=== PATIENT | male | born 1995 | race Caucasian/White ===

== ENCOUNTER 2025-03-10 12:00 | Outpatient (REF) | payer OTHER, SELFPAY ==
--- OUTSIDE RECORDS SUMMARY | 2025-03-10 12:41 | XMS_ITS | Clinical Summary ---
Author Organization [facility] Address [address] [place] [address] Phone Care Team Providers Care Vice President Safety Name Role Phone Unavailable Primary Care Provider Unavailabl e Immunizations Immunization Administration Dates Next Due DTaP 07/17/1999, 7,1995,10/08,1995 H1N1 03/08/2009 HPV, Quadrivalent 12/26/2011,08/19/2011,06/16/19 12 Hep B, ped/adol 03/08/1996,1995,1995 Hib (PRP-T) 09/06/1996, 6,1995,08/05 IPV 07/17/1999 Influenza 12/19/2008, 8,02/05/2007,03/21,03/14/2005 Influenza, injectable, quadr ivalent, preservative free 02/11/2014,02/19/2013 Influenza, injectable, trivalent 06/08/2012,05/22,02/22/2010 MMR 06/10/2000,09/06/1996 Meningococcal Conj (Menactra) MCV4P 06/07/2013,0 06/08/2007 OPV 1995,1995,1995 Tdap 06/08/2007 Varicella 06/08/2007,06/09/1996 Family History Relation Name Status Comments Cousin 1 Alive Cousin 2 Maternal Cousin s: Cousin passed of acute liver failure at the age of 23 years which was a results of herpes simplex infection. Negative for David Father Alive Father's Brother Alive Father's Sister Paternal Aun t: None Maternal Grandfather Alive Maternal Grandmother Alive Mat GMo ther: Lung cancer ? Mother Alive Other 1 None Other 2 Alive Other 3 Alive Other 4 Alive Other 5 Alive Other 6 Alive Other 7 Alive Other 8 Alive Other 9 Alive Other 10 Alive Lung cancer ? Other 11 Cousin passed o f acute liver failure at the age of 23 years which was a results of herpes simplex infection. Negative for David Other 12 Unknown Paternal Grandfather Pat GFa ther: Unknown Paternal Grandmother Alive Social History Tobacco Use Types Packs/Day Years Used Date Smoking Tobacco: Never Assessed Sex and Gender Information Value Date Recorded Sex Assigned at Not on file Legal Sex Male 4:52 PM EST Gender Identity Not on file Sexual Orientation Not on file Last Filed Vital Signs Vital Sign Reading Time Taken Comments Blood Pressure 116/73 05/24/2015 12:00 AM EST Pulse 74 05/24/2015 12:00 AM EST Temperature 37.1 C (98.8 F) 03/27/2015 12:00 AM EST Respiratory Rate - - Oxygen Saturation 97% 02/12/2011 12:00 AM EDT Inhaled Oxygen Concentration - - Weight 102 kg (223 lb 13 oz) 05/24/2015 12:00 AM EST Height 180.3 cm (5' 11 ) 05/24/2015 12:00 AM EST Body Mass Index 31.22 05/24/2015 12:00 AM EST Plan of Treatment Health Maintenance Due Date Last Done Comments DTaP,Tdap,and Td Vaccines (7 - Td or Tdap) 06/08/2017 06/08/2007, 07/17/1999, 12/06/1996, Additional history exists Influenza Vaccines (#1) 2024 02/12/20 14, 02/19/2013, 06/08/2012, Additional history exists COVID-19 Vaccine ( season) 2024 Hepatitis B Vaccines Completed 03/08/1996, 1995, 1995 HIB Vaccines Completed 09/06/1996, 11/18, 1995, Additional history exists IPV Vaccines Completed 07/17/1999, 11/18, 1995, Additional history exists MMR Vaccines Completed 06/10/2000, 09/06/1996 Varicella Vaccines Completed 06/08/2007, 06/09/1996 HPV Vaccines Completed 12/26/2011, 05/0 04/2011, 06/16/2011 Meningococcal Vaccine Completed 06/07/2013, 008 Hepatitis A Vaccines Aged Out No long er eligible based on patient's age to complete this topic Men B Vaccine Aged Out No longer elig ible based on patient's age to complete this topic Pneumococcal Vaccine Aged Out No long er eligible based on patient's age to complete this topic
--- OUTSIDE RECORDS SUMMARY | 2025-03-10 12:41 | XMS_ITS | Clinical Summary ---
Author Organization [facility] [email or web address] [facility] Address [address] [place] [address] Care Team Providers Care Burner Operator Name Role Phone Pcp, Josselin Primary Care Provider [phone] Social History Tobacco Use Types Packs/Day Years Used Date Smoking Tobacco: Never Assessed Sex and Gender Information Value Date Recorded Sex Assigned at Not on file Legal Sex Male 10:12 AM EST Gender Identity Not on file Sexual Orientation Not on file Plan of Treatment Not on file Medical Devices Not on file Insurance [facility] Care Teams Burner Operator Relationship Specialty Start Date End Date Josselin Chavez PCP - General Family Medicine 03/26/20
--- OUTSIDE RECORDS SUMMARY | 2025-03-10 12:41 | XMS_ITS | Clinical Summary ---
Author Organization [facility] Address [address] [address] Phone Care Team Providers Care Market Research Executive Name Role Phone Kirill Gomez Primary Care Provider [phone] Allergies Active Allergy Reactions Criticality Noted Date Comments Amoxicillin Hives 10/19/2019 Medications acetaminophen (TYLENOL) 325 mg tablet Take 2 tablets (650 mg total) by mouth every 6 (six) hours as needed for mild pain. 0 10/20/2019 Active diclofenac sodium (VOLTAREN) 75 MG EC tablet Take 1 tablet (75 mg total) by mouth 2 (two) times a day. 30 tablet 12/05/2024 Active cyclobenzaprine (FLEXERIL) 10 MG tablet Take 1 tablet (10 mg total) by mouth 3 (three) times a day as needed (pain). 30 tablet 12/05/2024 Active gabapentin (NEURONTIN) 100 MG capsule Take 1 capsule (100 mg total) by mouth 3 (three) times a day as needed (pain). 9 capsule 12/16/2024 Active Resolved Problems Problem Noted Date Diagnosed Date Resolved Date Appendicitis, acute 10/19/2019 10/20/19 20 Encounters Date Type Department Care Team Description 12/16/2024 4:32 PM EDT - 12/16/2024 6:08 PM EDT Emergency [facility] [address] [place] [address] Discharge Disposition: Home or Self Care from Last 3 Months Social History Tobacco Use Types Packs/Day Years Used Date Smoking Tobacco: Never Smokeless Tobacco: Never Alcohol Use Standard Drinks/Week Comments Never 0 (1 standard drink = 0.6 oz pur e alcohol) Education Answer Date Recorded Are you interested in more education? Not on edwardo e 08/15/2022 Are you concerned about learning? Not on file 08/15/2022 No 08/15/2022 No 08/15/2022 Digital Access Answer Date Recorded No 09/12/2022 No 09/12/2022 Reliable internet access at home? Not on file 09/12/2022 Device with a working camera? Not on file Intimate Partner Violence Answer Date R ecorded Are you denied basic needs s uch as food, clothing, or medical care? No 12/16/2024 In the past 12 months have y ou been in a relationship with a person who hurts, threatens, or tries to control you? No 12/16/2024 Are you denied basic needs s uch as food, clothing, or medical care? No 12/16/2024 In the past 12 months have y ou been in a relationship with a person who hurts, threatens, or tries to control you? No 12/16/2024 Sex and Gender Information Value Date Recorded Sex Assigned at Male 10/19/2019 4:32 PM EDT Legal Sex Male 8:52 PM EDT Gender Identity Male 10/19/2019 4:32 PM EDT Sexual Orientation Not on file Last Filed Vital Signs Vital Sign Reading Time Taken Comments Blood Pressure 117/78 12/16/2024 4:34 PM EDT Pulse 101 12/16/2024 4:34 PM EDT Temperature 36.4 C (97.5 F) 12/16/2024 4:34 PM EDT Respiratory Rate 18 12/16/2024 4:34 PM EDT Oxygen Saturation 98% 12/16/2024 6:06 PM EDT Inhaled Oxygen Concentration - - Weight 104.3 kg (230 lb) 12/16/2024 2:11 PM EDT Height 180.3 cm (5' 11 ) 12/16/2024 2:11 PM EDT Body Mass Index 32.08 12/16/2024 2:11 PM EDT Plan of Treatment Health Maintenance Due Date Last Done Comments DEPRESSION SCREENING 2007 HEPATITIS C SCREENING 2013 HIV ONE-TIME SCREENING (18-6 5 YEARS) 2013 Adult Td,Tdap Booster 06/08/2017 06/08/2007 INFLUENZA VACCINE (#1) 2024 COVID-19 VACCINE (2024-2 6 season) 2024 SMOKING STATUS SCREENING (On ce After 26 Yrs) Completed 12/16/2024 HEPATITIS A VACCINES Aged Out No long er eligible based on patient's age to complete this topic HIB VACCINES Aged Out No longer eligi ble based on patient's age to complete this topic MENINGOCOCCAL VACCINES (ACWY) Aged Out No longer eligible based on patient's age to complete this topic MENINGOCOCCAL VACCINES (B) Aged Out N o longer eligible based on patient's age to complete this topic PNEUMOCOCCAL VACCINES (0-49 years) Aged Out No longer eligible based on patient's age to complete this topic Medical Devices Not on file Insurance [address] [place], [place] [address] [place], [place] [address] [place], [place] [address]S Advance Directives For more information, please contact: [phone] (9AM - 5PM [facility], Thursday-Thursday) * Full Code (Confirmed) (Latest Code Status on File) Date Activated Date Inactivated Comments 10/20/2019 7:58 AM Question Answer Comments Code Status Confirmed With: Patient Care Teams Market Research Executive Relationship Specialty Start Date End Date Kirill Gomez DO [address] [place] [phone] PCP - General Internal Medicine 12/05/24 Additional Source Comments The information contained in this document represents components of the legal health record. It is not the complete legal health record.[facility]
--- OUTSIDE RECORDS SUMMARY | 2025-03-10 12:41 | XMS_ITS | Continuity of Care Document ---
Author Organization [facility] Address [address] [facility] [place] [address] [place] [address] Care Team Providers Care Skein Washer Name Role Phone KILLIAN CASILLAS Healthcare Marketer Unavailable Assessment No assessment recorded. Plan of Treatment Reminders Order Date Submit Date Provider Last Modified By Organization Details Last Modified Time Details Appointments ANNUAL EXAM 2024 03:45P AR HENRY Not available Not available Not available Lab CMP, serum or plasma 2024 025 [facility], [address] [place] [address], [id number], 01/03/2025 10:34:00 CBC w/ auto diff 2024 025 [facility], [address] [place] [address], [id number], 01/03/2025 10:34:00 lipid panel, blood 2024 025 [facility], [address] [place] [address], [id number], 01/03/2025 10:34:00 hemoglobi n A1c, QN, blood 2024 025 [facility], [address] [place] [address], [id number], 01/03/2025 10:34:00 Referral None recorded. Procedures None recorded. Surgeries None recorded. Imaging None recorded. Medication Orders None recorded. Patient TargetsNo targets recorded. Patient InstructionsNo instructions recorded. Reason for Referral None Reported. Problems Name Problem SNOMED Code Status Onset Date Resolution Date Notes Provider Name and Address Organization Details Recorded Time Contact dermatitis 42672233 Active 2021 AR SORENSEN [address] [place] [address], [phone], [facility] 2 16:32:26 Dental abscess 941369834 Active 2021 AR SORENSEN [address] [place] [address], [phone], [facility] 2 16:32:35 Chronic low back pain 722412063 Active 2024 AR SORENSEN [address] [place] [address], [phone], [facility] 5 10:35:51 Problem Notes None recorded. Medical Equipment None Reported. Allergies Allergen ID Allergen Name Allergen Category Reaction Reaction Severity Criticality Documentation Date Start Date Code Code System Note Provider Name and Address Organization Details Recorded Time 2590 amoxicill in medicatio n Not available Not available Not available 03/29/2018 723 [facility] Fi[facility]al[facility] 8 10:51:57 Medications Name Sig Start Date Stop Date Status Note LastModified by Organization Details LastModified Time cyclobenzap rine 10 mg tablet TAKE 1 TABLET (10 MG TOTAL) BY MOUTH 3 (THREE) TIMES A DAY NEEDED (PAIN). 01/03 completed Not Available Not Available Not Available doxycycline hyclate 100 mg capsule 07/23 completed Not Available Not Available Not Available clindamycin HCl 300 mg capsule Take 1 capsule every 6 hours by oral route for 10 days. 01/03 completed Not Available Not Available Not Available clotrimazol e-betametha sone 1 %-0.05 % topical cream APPLY TO THE AFFECTED AND SURROUNDI NG AREAS OF SKIN BY TOPICAL ROUTE 2 TIMES PER DAY IN THE MORNING AND EVENING FOR 2 WEEKS 01/03 completed Not Available Not Available Not Available diclofenac sodium 75 mg tablet,cierra yed release TAKE 1 TABLET BY MOUTH TWICE A DAY 01/03 completed Not Available Not Available Not Available gabapentin 100 mg capsule TAKE 1 CAPSULE (100 MG TOTAL) BY MOUTH 3 TIMES A DAY NEEDED FOR PAIN 01/03 completed Not Available Not Available Not Available naproxen 500 mg tablet TAKE 1 TABLET BY MOUTH TWICE A DAY FOR 14 DAYS NEEDED FOR PAIN WITH FOOD 01/03 completed Not Available Not Available Not Available tizanidine 2 mg capsule 08/29 completed Not Available Not Available Not Available Boostrix Tdap 2.5 Lf unit-8 mcg-5 Lf/0.5 mL intramuscul ar syringe 07/23 completed Not Available Not Available Not Available Vitals Date Recorded Body weight Body mass index (BMI) Body height Heart rate Oxygen saturation Systolic And Diastolic Provider Name and Address Organization Details Last Updated DateTime 5 480238. 98 g 38 kg/m2 177.8 cm 76 /min 98 % 124/80 mm[Hg] [facility] 10:09:59 Social History Question Answer Notes LastModified by Organizat ion Details LastModified Time Tobacco Smoking Status Never Smoker Not Available [employer] 02/21/2020 03:36:24 What Was The Date Of Your Most Recent Tobacco Screening? 07/23/2021 [email or web address] Information not available 07/23/2021 Sex: Unknown Functional Status None recorded. Mental Status None recorded. Family History Nothing Reported. Medical History Condition Response Coronary Artery Disease N Gout N Other N Kidney Stones N Blood Diseases N Blood Transfusion N Breast Cancer N COPD N Depression N Lung Disease N Defects or Inherited Disease N Anxiety Disorder N Muscle, Joint, or Bone Problems N Obesity N Vision or Eye Problems N Arthritis N Polyps N Infertility N Mental Disorder N Cancer N Varicosities N Stroke N Endometriosis N Bladder or Kidney Problems N High Cholesterol N Liver Disease N Headaches N Fibromyalgia N Kidney Disease N Allergies/Hayfever N Heart Problems N Hospitalizations N Thyroid Problems N GI Problems N Eating Disorder N Skin Problems N Anemia N MRSA exposure N Constipation N Mental Illness N Diabetes N Ovarian Cancer N Seizures/Epilepsy N Tuberculosis N Congestive Heart Failure (CHF) N Eczema N Abuse/Domestic Violence N Diverticulitis N Asthma N Reflux/GERD N Hepatitis N Heart Disease N Pulmonary Embolism N Hypertension N Chicken Pox N Autism Spectrum Disorder (ASD) N Osteoporosis N Immunizations Vaccine Type Date Status Note Provider Nam e and Address Organization Details Recorded Time COVID-19, mRNA, LNP-S, PF, 100 mcg/0.5mL dose or 50 mcg/0.25mL dose 09/22/2020 completed Betty champagne [facility] 07/23/2021 08:17:55 COVID-19, mRNA, LNP-S, PF, 100 mcg/0.5mL dose or 50 mcg/0.25mL dose 10/20/2020 completed Betty champagne [facility] 07/23/2021 08:18:02 Tdap 07/04/2019 completed Betty champagne [facility] 07/23/2021 08:18:18 Past Encounters Encounter ID Performer Location Encounter Start Date Encounter Closed Date Diagnosis/Indication Diagnosis SNOMED-CT Code Diagnosis ICD10 Code Diagnosis IMO Codes [facility] [id number] [facility] [address] [facility],[place] [address] 01/03/2025 09:55:44 01/03/2025 12:57:15 Depression screening 950542854 Z13.31 negative Screening for cardiovascular system disease 522834992 Z13.6 270745 will set up with lab work Diabetes m ellitus screening 718494657 Z13.1 785956 will set up with lab work Chronic low back pain 27 7136868 M54.50 G89.29 36643261 stable at this time Health Concerns Section Related Observation LastModified by Organization Detai ls LastModified Time None Recorded Concern Status LastModified by Organization Details LastModified Time None Recorded Payers Encounter Date Sequence Insurance Name Policy Number Policy Berman Covered Member ID Berman Member ID Guarantor Name 01/03/2025 1 [facility] [id number] Carlos Conner [id number] Carlos Conner Notes Date Note Type Note Provider Name a nd Address Organization Details Recorded Time 01/03/2025 text/html ROS as noted in the HPI Re-Establish the patient is here to re-establish as a patient at the practicethe patient was in the ER at the end of Novemberthe patient has severe back pain, was given an injection of toradol and a script of gabapentin which patient isn't currently using the patient had lasix done, worked well, no issues, finished with his post-op issues had allergy testing done, pt has an allergy to dust mites otherwise no other allergies outside the amoxicillin BP is excellent depression screening: The patient denies little pleasure in activities they find enjoyable, feeling depressed, difficulties sleeping, feeling tired or having little energy, change in appetite, feeling guilty, overwhelmed or unmotivated. The patient denies suicidal ideation, thoughts of hurting themselves or others. Their mood is appropriate, they show good judgement and clear understanding of the conversation. They are orientated to time, place and person. They are not expressing any concerning thoughts or actions that would need further investigation and treatment for mental health. eating well and sleeping well the patient is otherwise doing well chart updated with current informationthe patient has not other questions today his back feels fine no issues at this time AR SORENSEN [address] [place] [address], [place], [phone], [facility] 01/03/2025 10:36:44
--- OUTSIDE RECORDS SUMMARY | 2025-03-10 12:41 | XMS_ITS | Encounter Summary ---
Author Organization [facility] Address [address] [place] [id number] Phone Care Team Providers Care Electronic Industrial Controls Mechanic Name Role Phone Michael [place] MD Primary Care Provider Unavailabl e Encounter Details Date Type Department Care Team (Late st Contact Info) Description 11/26/2016 Conversion Encounter [facility] - [address], [address] [place] [address] Michael [place] MD Social History Tobacco Use Types Packs/Day Years Used Date Smoking Tobacco: Never Assessed Sex and Gender Information Value Date Recorded Sex Assigned at Not on file Legal Sex Male 4:52 PM EST Gender Identity Not on file Sexual Orientation Not on file documented as of this encounter Plan of Treatment Not on file documented as of this encounter Visit Diagnoses Not on filedocumented in this encounter Care Teams Electronic Industrial Controls Mechanic Relationship Specialty Start Date End Date Michael [place] MD PCP - General 06/10/16 04/12/20 documented as of this encounter
--- OUTSIDE RECORDS SUMMARY | 2025-03-10 12:41 | XMS_ITS | Data Portability ---
Author Organization [facility], Telehealth Patient Home Address [address] [place] [address] Care Team Providers Care Refuse Collector Name Role Phone SONJAAGUSTÍNDAILY Web Site Project Manager Unavailable Assessment Encounter Date Assessment Date Assessment LastModified by Organization Details LastModified Time 03/27/2021 03/27/2021 Patient agreed and verbally consents to this audio and video Telehealth appt via a secure platform [email or web address] Not available 03/27/2021 15:06:15 Plan of Treatment Reminders Order Date Submit Date Provider Last Modified By Organization Details Last Modified Time Details Appointments ANNUAL EXAM 2024 03:45P M AR SORENSEN Not available Not available Not available Lab CMP, serum or plasma 2024 025 [facility], [address] [place] [address], [id number], 01/03/2025 10:34:00 CBC w/ auto diff 2024 025 [facility], [address] [place] [address], [id number], 01/03/2025 10:34:00 lipid panel, blood 2024 025 [facility], [address] [place] [address], [address], 01/03/2025 10:34:00 hemoglobi n A1c, QN, blood 2024 025 [facility], [address] [facility], [place], [address], 01/03/2025 10:34:00 urinalysi s, dipstick 2019 [email or web address] [facility], [address] [facility], [address], [place], [address], 08/30/2019 16:10:08 CMP, serum or plasma 2019 020 [email or web address] Not available 08/30/2019 16:33:08 lipid panel, blood 2019 [email or web address] Not available 08/30/2019 16:33:08 CBC w/ auto diff 2019 020 [email or web address] Not available 08/30/2019 16:33:08 vitamin D, 25-hydrox y, total, serum 2019 [email or web address] Not available 08/30/2019 16:33:08 Referral patient attendant referral 2021 022 [email or web address] Carlos Carlos, [address] [place] [address], [address], 07/24/2021 13:53:32 Procedures None recorded. Surgeries None recorded. Imaging None recorded. Medication Orders clindamyc in HCl 300 mg capsule 2021 022 [email or web address] [id number], [address] [place], [address], 01/03/2025 10:08:02 clotrimaz ole-betam ethasone 1 %-0.05 % topical cream 2021 022 [email or web address] [id number], [address] [place], [address], 01/03/2025 10:08:44 clotrimaz ole-betam ethasone 1 %-0.05 % topical cream [id number], [address] [place], [address], 01/03/2025 10:08:44 Patient TargetsNo targets recorded. Patient InstructionsNo instructions recorded. Reason for Referral Movie Extra Referral for Conta ct dermatitis recurrent rash inside of his elbows and back Referring Physician: Dasia Romano, Internal Medicine, Encounter Date: 07/23/2021 Results Created Date Observation Date Name Description Value Unit Range Abnormal Flag Note LastModifiedBy Organization Detail LastModifiedTime 08/30/19 20 08/30/2019 urina lysis , dipst ick Leukocytes Negati ve Not Available [facility] [address] [facility] [address], [place], [address], 08/30/2019 15:51:38 08/30/19 20 08/30/2019 urina lysis , dipst ick Nitrite negati ve Not Available [facility] [address] [facility], [place], [address], 08/30/2019 15:51:38 08/30/19 20 08/30/2019 urina lysis , dipst ick Urobilinogen .2 Not Available [facility] [address] [facility] [address], [place], [address], 08/30/2019 15:51:38 08/30/19 20 08/30/2019 urina lysis , dipst ick Protein Negati ve Not Available [facility] [address] [facility] [address], [place], [address], 08/30/2019 15:51:38 08/30/19 20 08/30/2019 urina lysis , dipst ick pH 6.0 Not Available [facility] Internal [facility] [address] [facility] [address], [place], [address], 08/30/2019 15:51:38 08/30/19 20 08/30/2019 urina lysis , dipst ick Specific [place] 1.025 Not Available [facility] [address] [facility] [address], [place], [address], 08/30/2019 15:51:38 08/30/19 20 08/30/2019 urina lysis , dipst ick Blood Negati ve Not Available [facility] [address] [facility] [address], [place], [address], 08/30/2019 15:51:38 08/30/19 20 08/30/2019 urina lysis , dipst ick Ketone Trace Not Available [facility] [address] [facility] [address], [place], [address], 08/30/2019 15:51:38 08/30/19 20 08/30/2019 urina lysis , dipst ick Bilirubin Negati ve Not Available [facility] [address] [facility] [address], [place], [address], 08/30/2019 15:51:38 08/30/19 20 08/30/2019 urina lysis , dipst ick Glucose Negati ve Not Available [facility] [address] [facility] [address], [place], [address], 08/30/2019 15:51:38 08/30/19 20 08/30/2019 urina lysis , dipst ick Appearance Clear Not Available [facility] [address] [facility] [address], [place], [address], 08/30/2019 15:51:38 08/30/19 20 08/30/2019 urina lysis , dipst ick Color Yellow Not Available [facility] [address] [facility] [address], [place], [address], 08/30/2019 15:51:38 10/19/19 20 10/19/2019 CT, abdom en + pelvi s, w/ contr ast No observ ation record ed. [email or web address] [facility] [address] [facility], [place], [address], 10/21/2019 13:31:55 Result Notes None recorded. Problems Name Problem SNOMED Code Status Onset Date Resolution Date Notes Provider Name and Address Organization Details Recorded Time Contact dermatitis 62067639 Active 2021 AR SORENSEN [address] [place] [address], [address], [facility] Internal [facility] 2 16:32:26 Dental abscess 163079560 Active 2021 AR SORENSEN [address] [place] [address], [address], [facility] Internal [facility] 2 16:32:35 Chronic low back pain 173025336 Active 2024 AR SORENSEN [address] [place] [address], [address], [facility] Internal [facility] 5 10:35:51 Problem Notes None recorded. Medical Equipment None Reported. Allergies Allergen ID Allergen Name Allergen Category Reaction Reaction Severity Criticality Documentation Date Start Date Code Code System Note Provider Name and Address Organization Details Recorded Time 2590 amoxicill in medicatio n Not available Not available Not available 03/29/2018 723 RxNorm Fiordaliza Florencio [facility] 8 10:51:57 Medications Name Sig [...] Available Not Available Vitals Date Recorded Body height Body mass index (BMI) Body weight Oxygen saturation Heart rate Systolic And Diastolic Provider Name and Address Organization Details Last Updated DateTime 2 179.07 cm 37.5 kg/m2 888664. 98 g 98 % 83 /min 128/78 mm[Hg] Betty Elias [facility] 2 16:24:22 Date Recorded Body height Body mass index (BMI) Body weight Heart rate Oxygen saturation Systolic And Diastolic Provider Name and Address Organization Details Last Updated DateTime 0 179.07 cm 35.1 kg/m2 808857. 91 g 86 /min 98 % 130/82 mm[Hg] [facility] 0 15:51:18 Date Recorded Body height Body mass index (BMI) Body weight Heart rate Oxygen saturation Systolic And Diastolic Provider Name and Address Organization Details Last Updated DateTime 0 179.07 cm 35.7 kg/m2 572471. 35 g 91 /min 98 % 132/72 mm[Hg] Barbara Cardenas [facility] 0 15:04:36 Date Recorded Body weight Body mass index (BMI) Body height Heart rate Oxygen saturation Systolic And Diastolic Provider Name and Address Organization Details Last Updated DateTime 5 334147. 98 g 38 kg/m2 177.8 cm 76 /min 98 % 124/80 mm[Hg] Marleny Lu [facility] 5 10:09:59 Social History Question Answer Notes LastModified by Organizat ion Details LastModified Time Tobacco Smoking Status Never Smoker Not Available [facility]2020 03:36:24 What Was The Date Of Your Most Recent Tobacco Screening? 07/23/2021 [email or web address] Information not available 07/23/2021 Sex: Unknown Functional Status None recorded. Mental Status None recorded. Family History Nothing Reported. Medical History Condition Response Coronary Artery Disease N Other N Gout N Kidney Stones N Blood Diseases N Breast Cancer N Blood Transfusion N Depression N COPD N Lung Disease N Defects or Inherited [...] N Thyroid Problems N GI Problems N Skin Problems N Eating Disorder N Anemia N MRSA exposure N Constipation N Mental Illness N Ovarian Cancer N Diabetes N Seizures/Epilepsy N Tuberculosis N Congestive Heart Failure (CHF) N Eczema N Diverticulitis N Abuse/Domestic Violence N Asthma N Reflux/GERD N Hepatitis N Heart Disease N Pulmonary Embolism N Hypertension N Chicken Pox N Autism Spectrum Disorder (ASD) N Osteoporosis N Immunizations Vaccine Type Date Status Note Provider Nam e and Address Organization Details Recorded Time COVID-19, mRNA, LNP-S, PF, 100 mcg/0.5mL dose or 50 mcg/0.25mL dose 09/22/2020 completed Betty champagne [facility] Internal [facility] 07/23/2021 08:17:55 COVID-19, mRNA, LNP-S, PF, 100 mcg/0.5mL dose or 50 mcg/0.25mL dose 10/20/2020 completed Betty champagne [facility] Internal [facility] 07/23/2021 08:18:02 Tdap 07/04/2019 completed Betty champagne [facility] Internal [facility] 07/23/2021 08:18:18 Past Encounters Encounter ID Performer Location Encounter Start Date Encounter Closed Date Diagnosis/Indication Diagnosis SNOMED-CT Code Diagnosis ICD10 Code Diagnosis IMO Codes Diagnosis Note [id number] Kirill Gomez DO [facility] [address] [facility] [address] 03/29/2018 10:39:55 03/29/2018 11:12:20 Low back pain 880914853 M54.5 see discussion , letter [id number] Kirill Gomez [facility] [address] [facility],[place] [address] 08/30/2019 15:39:00 08/30/2019 16:18:01 Adult health examination 335732916 Z00.00 will work on diet and exercise and will check labs to see how he is doing otherwise he is doing well, no concerns today [id number] Kirill Gomez [facility] [address] [facility] [address] 11/01/2019 14:58:40 11/01/2019 15:32:00 Appendicitis 05061660 K37 resolved followed up with surgeon and surgeon stated he was doing well, had no concerns the patient is no longer symptomati c and does not have any residual pain from ther surgery doing well, healing well no concerns today [id number] Kirill Gomez [facility] Internal [facility] [address] [facility] [address] 03/27/2021 11:28:44 03/27/2021 15:47:34 Contact dermatitis 64741818 L25.9 will start on topical [id number] Kirill Gomez [facility] Internal [facility] [address] [facility] [address] 07/23/2021 16:13:17 07/24/2021 13:53:31 Contact dermatitis 41859878 L25.1 will start on topical again for his rash and set up with patient attendant Dental abscess 020189509 K04.7 will start on clindamyci n for his infection of his tooth [id number] Kirill Gomez [facility] Internal [facility] [address] [facility] [address] 01/03/2025 09:55:44 01/03/2025 12:57:15 Depression screening 581856347 Z13.31 negative Screening for cardiovascular system disease 048713797 Z13.6 19790424 will set up with lab work Diabetes m ellitus screening 705747247 Z13.1 020477 will set up with lab work Chronic low back pain 27 5404379 M54.50 G89.29 67711851 stable at this time Health Concerns Section Related Observation LastModified by Organization Detai ls LastModified Time None Recorded Concern Status LastModified by Organization Details LastModified Time None Recorded Advance Directives Directive None Recorded Payers Insurance Date Sequence Insurance Name Policy Number Policy Berman Covered Member ID Berman Member ID Guarantor Name 07/22/2021 1 [employer] SABINE [id number] Apoorva Conner [id number] Carlos Connre 03/29/2018 Abazab Carlos Conner 12/31/2024 1 [employer] SABINE [id number] Carlos Conner [id number] Carlos Conner Notes Date Note Type Note Provider Name and Address Organization Details Recorded Time 08/30/19 text/htm l Annual WellnessReported by PatientSocial/Behavioral HistoryFor fracture risk, patient reportshistory of fractures(tip of the pinky and a toe > not sure which one). For diet and nutrition, patient reportsdiscussed vitamin and supplement use,discussed portion control,discussed maintaining calcium balance, anddiscussed diet improvement(due to pandemic not eating his normal dietwas eating smaller meals throughout the day and a big lunchover the past two years he is up 30 poundsdiscussed food choices). For physical activity, patient reportsdiscussed weightbearing activitiesanddiscussed exercise habits. For additional lifestyle factors, patient reportsno tobacco useandno alcohol intake.Mental Status:For depression risk, patient reportsnever feels sad, empty, or tearful,no loss of interest in activities,no sleep disturbances or insomnia,no history of depression, andno history of mood disorders.Functional AbilityFor hearing, patient reportsno loss of hearing. For vision, patient reportsno vision problems.ROS as noted in the HPI BP and weight are up trying to work on diet with GF will work on work out routine > walking and hiking AR SORENSEN [address] [facility], [place], [address], [facility] 08/30/2019 16:12:43 11/01/19 20 text/htm l ROS as noted in the HPI hospital d/c the patient states he ended up at [facility] due to appendicitis the patient was experiencing symptoms for a day prior to going to hospital the patient reports that symptoms started as discomfort in the RLQ the patient reports that he tried laxatives because he thought he was constipation the ER doctor did lab work and CT scan > showed early stage of appendicitis had it removed via appendectomy has f/u with surgeon to check to make sure everything was fine, surgeon remarked he is doing very TODAY: the patient states that he is feeling better, no residual pain or symptoms the patient states that he has had a bowel movement and passed gas without any issues the patient states that he had right shoulder pain at the end of the surgery but stated per [facility] discharge paperwork that is normal the patient no longer has the shoulder pain the patient did not recieve any medication after surgery, surgeon was originally going to give him a script for oxy but he declined it took APAP when in pain and was fine medications reconcilled AR SORENSEN [address] [place], [address], [facility] 11/01/2019 15:19:58 03/27/20 21 text/htm l ROS as noted in the HPI c/o rash telemed the patient reports that he has a rash on the inside of his elbows, bilaterallythe patient states it reminds him of an allergic reaction he has had in the past started yesterday, took benadryl and it helped with the inflammationthe patient reports that the only new things he was on the floor putting together a bed frame the patient reports that the bed frame and wood and metalthe patient denies any prolonged contact except with carrying it to his room the patient states it is now on his left side and the top of his buttock AR SORENSEN [address] [place], [address], [facility] 03/27/2021 15:06:48 07/24/19 22 text/htm l ROS as noted in the HPI UC fu threw out his back last weekend carrying brickshad some left sided radiculopathyall resolved has other concerns todaydeveloped rash on the inside of his elbows againstart back on topical and fu with patient attendant has infection of his wisdom tooth lower right sideamox allergystart on clindamycin AR SORENSEN [address] [place], [address], [facility] 07/23/2021 16:46:11 01/04/20 25 text/htm l ROS as noted in the HPI Re-Establish [...] no issues at this time AR SORENSEN [address] [place] [address], [place], [address], [facility] 01/03/2025 10:36:44
--- OUTSIDE RECORDS SUMMARY | 2025-03-10 12:41 | XMS_ITS | Encounter Summary ---
Author Organization [facility] Address [address] [place] [address] Phone Care Team Providers Care Group Burner Machine Name Role Phone Kirill Gomez DO Primary Care Provider [phone] Kirill Gomez DO Primary Care Provider [phone] Encounter Details Date Type Department Care Team ([facility] st Contact Info) Description 10/19/2019 Procedure Pass OR Admitting Dept - Virtual Department [address] [place] [address] Social History Tobacco Use Types Packs/Day Years Used Date Smoking Tobacco: Never Smokeless Tobacco: Never Alcohol Use Standard Drinks/Week Comments Never 0 (1 standard drink = 0.6 oz pur e alcohol) Sex and Gender Information Value Date Recorded Sex Assigned at Male 10/19/2019 4:32 PM EDT Legal Sex Male 8:52 PM EDT Gender Identity Male 10/19/2019 4:32 PM EDT Sexual Orientation Not on file documented as of this encounter Functional Status documented as of this encounter Plan of Treatment Not on file documented as of this encounter Visit Diagnoses Not on filedocumented in this encounter Additional Health Concerns Infection Onset Date Last Indicated Resolved Time CoV-Risk 10/19/2019 10/19/2019 11/02/2019 1:23 AM EDT documented as of this encounter Care Teams Group Burner Machine Relationship Specialty Start Date End Date Kirill Gomez DO PCP - General Internal Medicine 10/19/19 12/04/24 Kirill Gomez DO [address] [place] [address] [place] [address] PCP - General Internal Medicine 12/05/24 documented as of this encounter Additional Source Comments The information contained in this document represents components of the legal health record. It is not the complete legal health record.[facility]
--- OUTSIDE RECORDS SUMMARY | 2025-03-10 12:41 | XMS_ITS | Encounter Summary ---
Author Organization [facility] Address [address] [place] [address] Phone Care Team Providers Care Personnel Consultant Name Role Phone Kirill Gomez DO Primary Care Provider Kirill Gomez DO Primary Care Provider [phone] Encounter Details Date Type Department Care Team (Late st Contact Info) Description 10/19/2019 Procedure Pass [facility], Ct Scan - [address] [address] Social History Tobacco Use Types Packs/Day Years [...] documented as of this encounter Care Teams Personnel Consultant Relationship Specialty Start Date End Date Kirill Gomez DO PCP - General Internal Medicine 10/19/19 12/04/24 Kirill Gomez DO [address] [place] [address] PCP - General Internal Medicine 12/05/24 documented as of this encounter Additional Source Comments The information contained in this document represents components of the legal health record. It is not the complete legal health record.[facility]
[2025-03-10 18:29] LABS: MANUAL DIFF FLAG NO
[2025-03-10 18:46] LABS: Hematocrit 45.4 % (42.0-52.0); Hemoglobin 15.4 g/dl (14.0-18.0); Imm Gran Abs Auto 0.01 X10*3/uL (0.00-0.03); Imm Gran Pct Auto 0.1 % (0.0-0.4); Lymphocytes Absolute Auto 2.4 X10*3/uL (1.2-4.9); Mean Corpuscular HGB Conc 33.9 g/dl (31.0-36.0); Mean Corpuscular Hemoglobin 29.2 pg (27.0-33.0); Mean Corpuscular Volume 86.0 fL (80.0-98.0); NRBC Abs Auto 0.000 X10*3/uL (0.0-0.012); NRBC Pct Auto 0.0 /100WBC (0.0-0.2); Platelet Count 256 X10*3/uL (160-400); Red Blood Count 5.28 X10*6/uL (4.60-5.80); White Blood Count 7.7 X10*3/uL (4.8-10.8)
[2025-03-10 19:08] LABS: Alanine Aminotransferase 27 U/L (0-40); Albumin Level 4.7 g/dL (3.5-5.0); Alkaline Phosphatase 80 U/L (39-117); Anion Gap 10 (12-20); Aspartate Amino Transferase 22 U/L (5-37); Blood Urea Nitrogen 11 mg/dL (9-16); Calcium 9.2 mg/dL (8.4-10.2); Carbon Dioxide 28 mmol/L (22-29); Chloride 107 mmol/L (96-108); Cholesterol 171 mg/dL (<200); Estimated Glomerular Filt Rate > 60; HDL Cholesterol 39 mg/dL (>40); Potassium 4.3 mmol/L (3.3-5.1); Sodium 141 mmol/L (135-145); Total Protein 7.4 g/dL (6.5-8.0); Triglycerides 83 mg/dL (<150)
== END 2025-03-10 12:01 | disposition home or self-care (01) ==
LOC: HO.MANLDS 12:00
PROVIDERS: Visit Provider Physician Assistant
DX: Z13.6 Encounter for screening for cardiovascular disorders (principal); Z13.1 Encounter for screening for diabetes mellitus
CPT/HCPCS: 36415; 80053; 80061; 83036; 85025